=== PATIENT | female | born 1945 | race Caucasian/White ===

== ENCOUNTER 2023-08-21 21:50 | Inpatient (IN) | payer MEDICARE, SELFPAY ==
--- NOTE | ~2023-08-21 | CT_ITS ---
EXAMINATION: CT abdomen pelvis w con DATE: 08/21/2023 23:37 INDICATION: RLQ and suprapubic pain TECHNIQUE: Computed tomography (CT) of the abdomen and pelvis was performed with 100 mL Omnipaque-350 intravenous contrast. Automated exposure control and iterative reconstruction technique were employe d. The dose-length product was 985.65 mGy-cm. COMPARISON: None. FINDINGS: Lower thorax: Coronary artery calcium. Cardiomegaly. Mild dependent atelectasis. Liver: Subcentimeter hypodensities in the left lobe and right lobe, likely small cysts or hemangiomas . Biliary/Gallbladder: Gallbladder is normal. No bile duct dilation. Pancreas: Fatty infiltration. Spleen: Normal. Adrenals:No mass. Kidneys: No suspicious mass, obstructing stone, or hydronephrosis. GI tract: Progressive mild dilation of distal small bowel, transition point in the distal ileum at en trance of a right inguinal hernia. Fecal content. Mesenteric stranding and fluid. No large bowel dila tion. Normal appendix. Diverticulosis without diverticulitis. Mesentery/Peritoneum: No ascites, mass, or free air. Retroperitoneum: No mass. Pelvis: Pelvic organs are within normal limits. Soft Tissues: Fat, small bowel, and fluid containing right inguinal hernia with a 2.5 cm neck. The he rniated bowel loop does not appear to be obstructed Bones: No acute osseous finding. IMPRESSION: Distal small bowel obstruction at the entrance of a right inguinal hernia. Mucosal hyperemia and mesenteric inflammation/fluid of the obstructed bowel proximal to the hernia ma y or present early signs of bowel wall ischemia. No evidence of strangulation of the herniated bowel loops. Reviewed, dictated and finalized at location [facility]. IMPRESSION: Distal small bowel obstruction at the entrance of a right inguinal hernia. Mucosal hyperemia and mesenteric inflammation/fluid of the obstructed bowel pro ximal to the hernia may or present early signs of bowel wall ischemia. No evidence of strangulation of the herniated bowel loops.
--- NOTE | ~2023-08-21 | CT_ITS ---
EXAMINATION: CT abdomen pelvis wo con DATE: 08/22/2023 07:43 INDICATION: Incarcerated right inguinal hernia TECHNIQUE: Computed tomography (CT) of the abdomen and pelvis was performed without intravenous contr ast. Automated exposure control and iterative reconstruction technique were employed. Exam dose: 114 8.43 mGy-cm total exam DLP. COMPARISON: August 21, 2023 CT abdomen pelvis FINDINGS: There is mild discoid atelectasis and/or scarring in the dependent right lower lobe. Cardiomegaly. No pericardial or pleural effusion. The liver, gallbladder, spleen, pancreas and bile ducts and pancreatic duct are unremarkable. Normal morphology of the adrenal glands. No renal mass lesion or urinary tract calculus or hydroureteronephrosis is evident. The urinary bladd er, uterus and adnexal areas are unremarkable. Normal caliber of the abdominal aorta. There is right inguinal hernia containing small bowel segments. Proximal to this is fecal-like conten t of the small bowel and mesenteric edema. Numerous diverticula of the sigmoid and descending colon and occasional transverse colon diverticula; no CT evidence of diverticulitis. Normal appendix. Small fat-containing umbilical hernia. Dextroscoliosis and multilevel degenerative disc disease of the lumbar spine. Diffuse idiopathic skel etal hyperostosis of the thoracic spine. IMPRESSION: Partial obstruction and possible strangulation of small bowel containing right inguinal hernia; urgent surgical consultation is recommended. Diverticulosis of the colon; no CT evidence of diverticulitis No evidence of appendicitis. Reviewed, dictated and finalized at [facility]. Reviewed, dictated and finalized at location A. IMPRESSION: Partial obstruction and possible strangulation of small bowel cont aining right inguinal hernia; urgent surgical consultation is recommended. Diverticulosis of the colon; no CT evidence of diverticulitis No evidence of appendicitis.
[2023-08-21 21:59] VITALS: BP 182/90; PULSE 80; RESP 20; TEMP 36.4; O2SAT 98
--- NOTE | 2023-08-21 22:26 | ED.ABDPAIN ---
HPI - Abdominal Pain General Chief Complaint: Abdominal Pain <FRANCISCA Malik Last Filed: 08/22/23 02:47> Stated Complaint: abd pain <FRANCISCA Malik Last Filed: 08/22/23 02:47> Time Seen by Provider: 08/21/23 22:18 <FRANCISCA Malik Last Filed: 08/22/23 02:47> History of Present Illness HPI narrative: 77-year-old female with reported history of thyroid disease presents to emergency department for abdominal pain that started today. Patient states the pain started in her epigastrium and she thought it was gas pains. States it is since traveled into her right lower quadrant. She describes the pain as sharp. She denies fever, nausea vomiting, diarrhea, dysuria or hematuria, flank pain, melena or hematochezia. Denies history of prior abdominal surgeries. Last BM was today and small in caliber. Denies obstipation. <FRANCISCA Malik Last Filed: 08/22/23 02:47> Related Data Home Medications: Home Medications Medication Instructions Recorded Confirmed levothyroxine 112 mcg tablet 112 mcg PO DAILY 08/22/23 08/22/23 <FRANCISCA Malik Last Filed: 08/22/23 02:47> Allergies/Adverse Reactions: Allergies Allergy/AdvReac Type Severity Reaction Status Date / Time No Known Allergies Allergy Verified 08/21/23 21:51 <FRANCISCA Malik Last Filed: 08/22/23 02:47> Review of Systems Review of Systems: CONSTITUTIONAL: Denies fever, chills, or sweats. EYES: Denies visual changes, redness, or discharge. ENT: Denies rhinorrhea, congestion, sore throat, or otalgia. CARDIOVASCULAR: Denies chest pain, palpitations, or edema. RESPIRATORY: Denies cough or dyspnea. GASTROINTESTINAL: See HPI GENITOURINARY: Denies dysuria or hematuria. SKIN: Denies rash or itching. MUSCULOSKELETAL: Denies back pain, joint pain, or myalgia. NEUROLOGIC: Denies headache, numbness, or weakness. PSYCHIATRIC: Denies anxiety or depression. <Sabina Holman PA-C - Last Filed: 08/22/23 02:47> [facility] Social History Social History: Social History Smoking status: Former smoker Tobacco type: cigarettes Alcohol intake: never Substance use: never Substance use type: does not use Do You Feel Safe in your Home?: Yes Lack of Transportation: No Lack of Food: Never True Current Housing: I Have Housing Concerned About Future Housing: No Difficulty Paying Gas/Electric Bills: No Difficulty Paying for Meds: No Currently Unemployed: No Education: High School Diploma/GED Difficulty w/ Childcare or Family Care: No Spiritual care concerns: Yes (Jahovah Witness) <Sabina Holman PA-C - Last Filed: 08/22/23 02:47> Exam Narrative: GENERAL: Well-appearing, well-nourished, and in no acute distress. HEAD: Normocephalic, atraumatic. EYES: PERRLA and EOMI. ENT: Nares clear, no rhinorrhea or epistaxis. Mucous membranes moist. NECK: Supple. CHEST: Clear to auscultation. No respiratory distress. HEART: Regular rate and rhythm. No murmur heard. Normal peripheral pulses. ABDOMEN: Quiet bowel sounds. Abdomen soft with tenderness and guarding in the right lower quadrant and suprapubic region. Palpable firm rate inguinal mass that is not easily reduced. It is tender to palpation. No overlying skin changes. No rigidity or rebound. No CVA tenderness. EXTREMITIES: Normal range of motion. No edema. SKIN: Warm, dry, no rash. NEURO: No focal deficits. Alert and oriented x3 <Sabina Holman PA-C - Last Filed: 08/22/23 02:47> Course [employer]IMAL BEHAVIOURIST/PA Physician Supervision For this patient encounter, I reviewed the ANIMAL BEHAVIOURIST or PA documentation, treatment plan, and medical decision making and had [id number] time with this patient. I performed all aspects of the MDM as documented. <Idalia Alejandra MD - Last Filed: 08/22/23 06:38> Vital Signs Vital signs: Vital Signs Temperature 97.5 F L
[2023-08-21 22:27] LABS: Basophils Percent Auto 0.3 % (0.2-1.2); Eosinophils Absolute Auto 0.1 K/mm3 (0-0.3); Hematocrit 38.2 % (37.0-47.0); Hemoglobin 12.6 g/dL (12.0-15.0); Immature Granulocyte Absolute 0.02 K/mm3 (0.00-0.031); Immature Granulocyte Percent A 0.3 % (0-0.5); Lymphocytes Absolute Auto 2.02 K/mm3 (0.9-3.2); Lymphocytes Percent Auto 28.4 % (18.3-44.2); Mean Corpuscular Hemoglobin 30.7 pg (26-34); Mean Corpuscular Volume 92.9 fl (80-100); Mean Platelet Volume 10.1 fl (7.4-10.4); Monocytes Absolute Auto 0.5 K/mm3 (0.1-0.6); Monocytes Percent Auto 7.5 % (2.6-8.5); Neutrophils Absolute Auto 4.4 K/mm3 (1.3-6.7); Neutrophils Percent Auto 61.5 % (45.5-73.1); Platelet Count Result 254 k/mm3 (150-375); Red Blood Count 4.11 M/mm3 (4.2-5.4); Red Cell Distribution Width 13.4 % (11.5-14.5); White Blood Count 7.1 K/mm3 (4.5-10.0)
[2023-08-21 22:33] LABS: Appearance Urine Cloudy (Clear); Bacteria Urine 2+ /hpf; Bilirubin Urine Negative (Negative); Blood Urine Negative (Negative); Color Urine Yellow (Yellow); Glucose Urine UA Negative (Negative); Ketones Urine Negative (Negative); Leukocyte Esterase Ur Negative LEU/UL (Negative); Nitrate Urine Negative (Negative); Non Pathogenic Casts 0-2; Protein Urine Negative (Negative); RBC Urine 0-2 /hpf (0-2); Specific Grav Ur 1.029 (1.001-1.035); Squamous Epithelial Cell Urine Many /hpf (Few); WBC Urine 0-5 /hpf (0-3)
[2023-08-21 22:39] LABS: Alanine Aminotransferase 24 U/L (6-35); Albumin Level 3.9 g/dL (3.5-5.1); Alkaline Phosphatase 103 U/L (38-126); Anion Gap 2 mmol/L (4-12); Aspartate Amino Transferase 25 U/L (14-36); Bilirubin,Total 0.4 mg/dL (0.2-1.3); Blood Urea Nitrogen 19 mg/dL (7-17); Calcium 9.3 mg/dL (8.4-10.2); Carbon Dioxide 28 mmol/L (22-30); Chloride 104 mmol/L (98-107); Estimated CRCL calculation 58 ml/min; Estimated Glomerular Filt Rate > 60; Glucose 126 mg/dL (65-110); Lipase 109 U/L (23-300); Sodium 134 mmol/L (137-145)
[2023-08-21] MEDS: MORPHINE SULFATE (*CRX) 4 MG/ML INJ 2 MG IV PUSH (22:39)
[2023-08-21 22:56] LABS: Add Urine Microscopic? YES
[2023-08-21 23:00] VITALS: BP 153/72; PULSE 72; RESP 20; O2SAT 94
[2023-08-21 23:12] LABS: Lactic Acid Reflex 0.7 mmol/L (0.7-2.0)
[2023-08-22] VITALS (24 sets, daily range): BP systolic 113–148; BP diastolic 52–78; PULSE 68–97; RESP 14–20; TEMP 35.7–36.8; O2SAT 86–100; BMI 35.2
[2023-08-22] MEDS: SODIUM CHLORIDE 0.9% IV 1,000 ML 999 ML IV CONT (00:49)
[2023-08-22] MEDS: HYDROmorphone HCL INJ (*CRX) 1 MG/ML SYR IV PUSH (00:49)
[2023-08-22] MEDS: PIPERACILLN/TAZ 3.375GM/NS50ML 3.375 GM/50 ML BAG IVPB ×2 (01:56→08:20)
[2023-08-22] MEDS: SODIUM CHLORIDE 0.9% IV 1,000 ML 100 ML IV CONT (01:56)
[2023-08-22] MEDS: ONDANSETRON INJ 4 MG/2 ML VIAL IV PUSH (03:32)
--- NOTE | 2023-08-22 07:32 | PM.IMHP ---
H&P: HPI History of Present Illness Date/Time: 08/22/23 07:32 Chief Complaint: Small-bowel obstruction secondary to incarcerated right inguinal hernia Narrative: Patient is a PMFSH Social History Social History Smoking status: Former smoker Tobacco type: cigarettes Alcohol intake: never Substance use: never Substance use type: does not use Do You Feel Safe in your Home?: Yes Lack of Transportation: No Lack of Food: Never True Current Housing: I Have Housing Concerned About Future Housing: No Difficulty Paying Gas/Electric Bills: No Difficulty Paying for Meds: No Currently Unemployed: No Education: High School Diploma/GED Difficulty w/ Childcare or Family Care: No Spiritual care concerns: Yes (Jahovah Witness) Meds Home Medications and Allergies Home Medications Medication Instructions Recorded Confirmed Type levothyroxine 112 mcg tablet 112 mcg PO DAILY 08/22/23 08/22/23 History Allergies Allergy/AdvReac Type Severity Reaction Status Date / Time No Known Allergies Allergy Verified 08/21/23 21:51 Vital Signs Vital Signs - 24 hr 08/21/23 21:59 08/21/23 23:00 08/22/23 02:57 Temperature 36.4 C L Pulse Rate 80 72 68 Respiratory Rate 20 20 16 Blood Pressure 182/90 H 153/72 H Pulse Oximetry 98 94 98 Oxygen Delivery Room Air Oxygen Flow Rate 08/22/23 00:55 08/22/23 01:00 08/22/23 01:20 Temperature Pulse Rate Respiratory Rate Blood Pressure Pulse Oximetry 86 L 97 99 Oxygen Delivery Oxygen Flow Rate 08/22/23 01:30 08/22/23 01:31 08/22/23 01:45 Temperature Pulse Rate Respiratory Rate Blood Pressure 134/64 Pulse Oximetry 99 99 100 Oxygen Delivery Oxygen Flow Rate 08/22/23 01:46 08/22/23 02:01 08/22/23 02:02 Temperature Pulse Rate Respiratory Rate Blood Pressure 138/72 133/69 Pulse Oximetry 99 96 97 Oxygen Delivery Oxygen Flow Rate 08/22/23 02:29 08/22/23 04:00 08/22/23 06:00 Temperature 36.5 C Pulse Rate 76 Respiratory Rate 20 Blood Pressure 126/78 Pulse Oximetry 98 98 97 Oxygen Delivery Nasal Cannula Oxygen Flow Rate 3 H&P: Results Labs Labs: Short CBC 04/05/24 Range/Units 22:19 WBC 7.1 (4.5-10.0) K/mm3 Hgb 12.6 (12.0-15.0) g/dL Hct 38.2 (37.0-47.0) % Plt Count 254 (150-375) k/mm3 BMP 08/21/23 22:19 Sodium 134 L Potassium 4.0 Chloride 104 Carbon Dioxide 28 BUN 19 H Creatinine 0.70 Glucose 126 H Calcium 9.3 Liver Function 08/21/23 Range/Units 22:19 Total Bilirubin 0.4 (0.2-1.3) mg/dL AST 25 (14-36) U/L ALT 24 (6-35) U/L Alkaline Phosphatase 103 (38-126) U/L Albumin 3.9 (3.5-5.1) g/dL Urine 08/21/23 Range/Units 22:19 Urine Color Yellow (Yellow) Urine Appearance Cloudy H (Clear) Urine pH 5.0 (5.0-9.0) Ur Specific [place] 1.029 (1.001-1.035) Urine Protein Negative (Negative) mg/dL Urine Glucose (UA) Negative (Negative) mg/dL
--- NOTE | 2023-08-22 07:34 | WPDCN ---
Assessment and Plan Assessment and plan (1) Small bowel obstruction: Code(s): K56.609 - Unspecified intestinal obstruction, unspecified as to partial versus complete obstruction Status: Acute Assessment and Plan: Patient's side symptoms of a partial small-bowel obstruction yesterday. The point obstruction appeared to be an incarcerated right inguinal hernia. CT scan revealed no obvious evidence of bowel ischemia or bowel necrosis. She was started IV antibiotics and admitted to the hospital for further evaluation. Hydrated IV fluids and kept NPO. (2) Hernia, inguinal, right: Code(s): K40.90 - Unilateral inguinal hernia, without obstruction or gangrene, not specified as recurrent Status: Acute Assessment and Plan: Patient has evidence of a incarcerated right inguinal hernia on CT scan last evening. This morning the patient has no right groin pain which resolved after she was admitted to the hospital. She has no nausea today. On examination she has no evidence of right inguinal hernia to palpation no skin changes. I am going to repeat a CT scan abdomen pelvis this morning without contrast stat. If there is no evidence of an acute incarcerated right inguinal with bowel obstruction then there will be no need for any emergent surgery this morning. If the hernia has reduced which is my clinical suspicion that we can go ahead advance her diet. At that point if she is doing well then she can either be discharged home with plan for an interval right inguinal hernia repair as an outpatient or she can remain in the hospital through the weekend and have the repaired before she goes home. HPI Data of Consult Date/Time: 08/22/23 07:34 Requesting Physician: Wu Allred MD Primary Care Provider: Luly Ricky Consult Narrative Reason for consult: Small-bowel obstruction secondary to incarcerated right inguinal hernia Narrative: Marcela Ochoa is a 77 year old female who presented to the emergency room this evening complaining of epigastric abdominal pain which localized to the right groin region earlier today. Had episodes of nausea but no emesis. She stated she had a lump in the right groin region which was very painful. Normal white blood cell count port. Normal lactic acid level. No tachycardia. No hypotension. Patient denies any prior history of abdominal or groin surgery. States she did not know she had an inguinal hernia. CT scan abdomen pelvis showed an incarcerated right inguinal hernia with small bowel loop in the right groin hernia sac. There was evidence of at least a partial small-bowel obstruction due to the right inguinal hernia. Free air was seen. No pneumatosis the bowel wall was seen. This morning the patient she has no groin pain. Palpation of the right groin reveals no evidence of a incarcerated right inguinal hernia on exam. No fever no tachycardia. Review of Systems Review of Systems: The remainder of the review of systems to include constitutional, HEENT, cardiovascular, respiratory, GI, , integumentary, musculoskeletal, endocrine, immunologic, hematologic, psychiatric, and neurologic are all negative except for which is mentioned above in the HPI. [facility] Social History Social History Smoking status: Former smoker Tobacco type: cigarettes Alcohol intake: never Substance use: never Substance use type: does not use Do You Feel Safe in your Home?: Yes Lack of Transportation: No Lack of Food: Never True Current Housing: I Have Housing Concerned About Future Housing: No Difficulty Paying Gas/Electric Bills: No Difficulty Paying for Meds: No Currently Unemployed: No Education: High School Diploma/GED Difficulty w/ Childcare or Family Care: No Spiritual care concerns: Yes (Jahovah Witness) Meds Home Medications and Allergies Home Medications Medication Instructions [place]
--- NOTE | 2023-08-22 08:40 | WPDANESEPPF ---
Anes - Initial Pre Proc Eval Procedure: Operation Date: 08/22/23 09:00 Proposed Procedures p Exploratory Laparotomy, Pos Bowel Resec - Orlin Mendez MD Date/Time: 08/22/23 08:40 Surgeon: Andrea Pre Op Diagnosis: sbo Patient Data Age: 77 Gender: F Height: 1.57 m Weight: 87.4 kg Last Vital Signs Temp 36.5 C 08/22/23 06:00 Pulse 76 08/22/23 06:00 Resp 20 08/22/23 06:00 BP 126/78 08/22/23 06:00 Pulse Ox 97 08/22/23 06:00 O2 Del Method Nasal Cannula 08/22/23 04:00 O2 Flow Rate 3 08/22/23 04:00 Allergies Allergy/AdvReac Type Severity Reaction Status Date / Time No Known Allergies Allergy Verified 08/21/23 21:51 Home Medications Medication Instructions Recorded Confirmed Type levothyroxine 112 mcg tablet 112 mcg PO DAILY 08/22/23 08/22/23 History Laboratory Tests 08/21/23 08/21/23 22:19 22:57 WBC 7.1 K/mm3 (4.5-10.0) RBC 4.11 L M/mm3 (4.2-5.4) Hgb 12.6 g/dL (12.0-15.0) Hct 38.2 % (37.0-47.0) MCV 92.9 fl (80-100) MCH 30.7 pg (26-34) MCHC 33.0 g/dl (32-36) RDW 13.4 % (11.5-14.5) Plt Count 254 k/mm3 (150-375) MPV 10.1 fl (7.4-10.4) Immature Gran % (Auto) 0.3 % (0-0.5) Neut % (Auto) 61.5 % (45.5-73.1) Lymph % (Auto) 28.4 % (18.3-44.2) [place] % (Auto) 7.5 % (2.6-8.5) Eos % (Auto) 2.0 % (0-4.4) Baso % (Auto) 0.3 % (0.2-1.2) Lymph # (Auto) 2.02 K/mm3 (0.9-3.2) [place] # (Auto) 0.5 K/mm3 (0.1-0.6) Eos # (Auto) 0.1 K/mm3 (0-0.3) Baso # (Auto) 0.0 K/mm3 (0.0-0.1) Abs Immat Gran (auto) 0.02 K/mm3 (0.00-0.031) Absolute Neuts (auto) 4.4 K/mm3 (1.3-6.7) Absolute Nucleated RBC 0.000 K/mm3 (0.0-0.012) Nucleated RBC % 0.0 % (0.0-0.2) Sodium 134 L mmol/L (137-145) Potassium 4.0 mmol/L (3.4-5.0) Chloride 104 mmol/L (98-107) Carbon Dioxide 28 mmol/L (22-30) Anion Gap 2 L mmol/L (4-12) BUN 19 H mg/dL (7-17) Creatinine 0.70 mg/dL (0.7-1.0) Estim Creat Clear Calc 58 ml/min Estimated GFR > 60 (59 - ) Glucose 126 H mg/dL (65-110) Lactic Acid 0.7 mmol/L (0.7-2.0) Calcium 9.3 mg/dL (8.4-10.2) Total Bilirubin 0.4 mg/dL (0.2-1.3) AST 25 U/L (14-36) ALT 24 U/L (6-35) Alkaline Phosphatase 103 U/L (38-126) Total Protein 8.0 g/dL (6.3-8.2) Albumin 3.9 g/dL (3.5-5.1) Lipase 109 U/L (23-300) Urine Color Yellow (Yellow) Urine Appearance Cloudy H (Clear) Urine pH 5.0 (5.0-9.0) Ur Specific [place] 1.029 (1.001-1.035) Urine Protein Negative mg/dL (Negative) Urine Glucose (UA) Negative mg/dL (Negative) Urine Ketones Negative mg/dL (Negative) Ur Blood (Man) Negative (Negative) Urine Nitrate Negative (Negative) Urine Bilirubin Negative (Negative) Urine Urobilinogen 1.0 mg/dL (<2.0) Leukocyte Esterase Rfl Negative BRENDA/UL (Negative) Urine RBC 0-2 /hpf (0-2) Urine WBC 0-5 /hpf (0-3) Ur Squamous Epith Cells Many H /hpf (Few) Urine Bacteria 2+ H /hpf Urine Casts 0-2 Patient hx anesthesia problems: none Family hx anesthesia problems: none Results Review: All pre-operative results and documents have been reviewed as part of the pre-operative evaluation. [facility] Past Medical History Medical History (Updated 08/22/23 @ 08:40 by Maxi Vogel DO) Hypothyroidism Pre-diabetes Social History Social History Smoking status: Former smoker Tobacco type: cigarettes Alcohol intake: never Substance use: never Substance use type: does not use Do You Feel Safe in your Home?: Yes Lack of Transportation: No [place]
--- NOTE | 2023-08-22 08:41 | WPDHPUPDATE1 ---
History and Physical Update Update Date/Time: 08/22/23 08:41 History and Physical has been reviewed, including an updated exam of the patient. There are NO changes in the patient's condition. Risks, benefits, and alternatives have been discussed and questions answered. Patient agrees to proceed with procedure.
[2023-08-22] MEDS: LACTATED RINGERS 1,000 ML 30 ML IV CONT (09:30)
[2023-08-22 09:44] LABS: Basophils Percent Auto 0.3 % (0.2-1.2); Eosinophils Percent Auto 0.2 % (0-4.4); Hematocrit 36.9 % (37.0-47.0); Hemoglobin 11.7 g/dL (12.0-15.0); Immature Granulocyte Absolute 0.02 K/mm3 (0.00-0.031); Immature Granulocyte Percent A 0.3 % (0-0.5); Lymphocytes Absolute Auto 0.69 K/mm3 (0.9-3.2); Lymphocytes Percent Auto 10.4 % (18.3-44.2); Mean Corpuscular HGB Conc 31.7 g/dl (32-36); Mean Corpuscular Hemoglobin 30.5 pg (26-34); Mean Corpuscular Volume 96.3 fl (80-100); Mean Platelet Volume 10.4 fl (7.4-10.4); Monocytes Absolute Auto 0.3 K/mm3 (0.1-0.6); Monocytes Percent Auto 4.7 % (2.6-8.5); Neutrophils Absolute Auto 5.6 K/mm3 (1.3-6.7); Neutrophils Percent Auto 84.1 % (45.5-73.1); Platelet Count Result 219 k/mm3 (150-375); Red Blood Count 3.83 M/mm3 (4.2-5.4); Red Cell Distribution Width 13.3 % (11.5-14.5); White Blood Count 6.6 K/mm3 (4.5-10.0)
[2023-08-22 10:00] LABS: Alanine Aminotransferase 23 U/L (6-35); Albumin Level 3.6 g/dL (3.5-5.1); Alkaline Phosphatase 83 U/L (38-126); Anion Gap 5 mmol/L (4-12); Aspartate Amino Transferase 26 U/L (14-36); Bilirubin,Total 0.5 mg/dL (0.2-1.3); Blood Urea Nitrogen 15 mg/dL (7-17); Calcium 8.2 mg/dL (8.4-10.2); Carbon Dioxide 26 mmol/L (22-30); Chloride 106 mmol/L (98-107); Estimated CRCL calculation 79 ml/min; Estimated Glomerular Filt Rate > 60; Glucose 140 mg/dL (65-110); Potassium 4.4 mmol/L (3.4-5.0); Sodium 137 mmol/L (137-145)
[2023-08-22] MEDS: LIDO 1%/EPINEPHRINE 1:100,000 50 ML VIAL 30 ML INFILTRATE (10:05)
[2023-08-22] MEDS: BUPivacaine HCL 0.5% PF 30 ML VIAL INFILTRATE (10:05)
[2023-08-22] MEDS: KETOROLAC 15 MG/ML VIAL (*BKC) IV PUSH (10:33)
--- NOTE | 2023-08-22 11:01 | W.PM.PROC2 ---
Procedure Note - Detailed Date of Procedure 08/22/23 Pre-op Diagnosis SBO. Incarcerated right inguinal hernia Post-op Diagnosis Same Procedure Performed Open incarcerated right inguinal hernia repair with Ultrapro hernia system mesh Surgeon Orlin Mendez MD Anesthesia General Indications Patient is a 77-year-old female who presented last evening with abdominal pain which then radiated down to the right groin region. She had episodes of nausea and vomiting. Workup in emergency room showed a normal white blood cell count and had no evidence of lactic acidosis. CT scan abdomen pelvis showed a loop of small bowel incarcerated within the right inguinal hernia without evidence of bowel ischemia. She presents now for an open incarcerated right inguinal hernia repair with possible mesh placement. Findings The patient indirect inguinal hernia. The small bowel was all viable and was reduced with the hernia sac back into the abdomen. An oval extended piece of Ultrapro hernia system mesh was used for the repair. Description of Procedure After informed consent was obtained patient brought to the operating room she was placed supine position and general endotracheal anesthesia was administered. The abdomen and bilateral groin regions were then prepped and draped usual sterile fashion. A time-out was then performed correctly identifying the patient as well as procedure to be performed verifying site marking. She was already on scheduled IV antibiotics. I then proceeded to make a transverse incision in the right groin region just above the palpated right pubic tubercle. Dissection carried down through the subcu tissues and Alesia's fascia electrocautery. External oblique aponeurosis was encountered and then the subcutaneous tissues was dissected off the external oblique aponeurosis. The external ring was identified and then incised the external oblique aponeurosis along the direction of its fibers the 15 blade scalpel. I then opened the external oblique aponeurosis out through the external ring utilized electrocautery. The external oblique aponeurosis was from the underlying internal oblique muscle fibers were utilized electrocautery. I then encircled the round ligament at the pubic tubercle with blunt finger dissection placed a [place] drain around the round ligament. I further divided some muscle fibers around the round ligament to further mobilize it. I then explored and looked at the floor of the inguinal canal and there is no evidence of a direct defect. I then explored the round ligament and identified fatty tissue as well as a small indirect inguinal hernia sac. There was no bowel in the hernia sac at this time. I then dissected the fatty tissue and the hernia sac from the muscle fibers the round ligament and reduced these back into the dilated internal ring. The round ligament was then resected by placing clamps proximally and distally and then dividing the segment in between. The around the was then ligated with 3-0 Vicryl sutures. The proximal portion of the round ligament was then reduced back into the preperitoneal space through the dilated internal ring. The retractors into the internal ring I then dissected out the preperitoneal space with blunt finger and sponge dissection until I felt I had the whole myopectineal orifice dissected. I then chose a local extended piece of ultra Pro hernia system mesh for the repair. The underlay portion of mesh placed to the dilated internal ring into the preperitoneal space deep to the inferior epigastric vessels. It cover the whole myopectineal orifice. The cylindrical connecting portion the ring came out through the internal ring and then the overlay portion of mesh was laid out over the floor of the inguinal canal. I then secured the overlay patch to the tissues around the pubic tubercle utilizing interrupted 2-0 Vicryl sutures. Medially the overlay patch was secured to the internal oblique muscle fib
--- NOTE | 2023-08-22 13:46 | PM.IMHP ---
H&P: HPI History of Present Illness Date/Time: 08/22/23 13:46 Chief Complaint: Abdominal pain Narrative: This is a 77-year-old female with a past medical history of hypothyroidism and diabetes on metformin who presented to the ER last night with complaints of severe abdominal pain to her right lower quadrant. The history was obtained from the patient and is supplemented by her brother who she lives with. She reports she just flew in last night from [place] after vacationing with her daughter. She was having abdominal pain throughout the day which suddenly worsened at night causing her to ask her brother to bring her to the ER. She reports 1 episode of vomiting in the ER. CT of her abdomen and pelvis shows partial obstruction and possible strangulation of small bowel containing right inguinal hernia. Surgery was consulted and she was taken to the OR this morning for open incarcerated right hernia repair with mesh placement. She is seen after surgery in her room and appears well. She states her abdominal pain has resolved and she is tolerating ice chips without nausea or vomiting. Review of Systems Review of Systems: All systems reviewed & are unremarkable except as noted in HPI and below PMFSH Past Medical History Medical History Hypothyroidism Pre-diabetes Surgical History Surgical History History of tonsillectomy S/P inguinal hernia repair using synthetic patch Social History Social History Smoking status: Former smoker Tobacco type: cigarettes Alcohol intake: never Substance use: never Substance use type: does not use Do You Feel Safe in your Home?: Yes Lack of Transportation: No Lack of Food: Never True Current Housing: I Have Housing Concerned About Future Housing: No Difficulty Paying Gas/Electric Bills: No Difficulty Paying for Meds: No Currently Unemployed: No Education: High School Diploma/GED Difficulty w/ Childcare or Family Care: No Spiritual care concerns: Yes ([employer]ah[employer]ah Witness) Meds Home Medications and Allergies Home Medications Medication Instructions Recorded Confirmed Type levothyroxine 112 mcg tablet 112 mcg PO DAILY 08/22/23 08/22/23 History Allergies Allergy/AdvReac Type Severity Reaction Status Date / Time No Known Allergies Allergy Verified 08/21/23 21:51 Vital Signs Vital Signs - 24 hr 08/21/23 21:59 08/21/23 23:00 08/22/23 02:57 Temperature 97.5 F L Pulse Rate 80 72 68 Respiratory Rate 20 20 16 Blood Pressure 182/90 H 153/72 H Pulse Oximetry 98 94 98 Oxygen Delivery Room Air Oxygen Flow Rate 08/22/23 00:55 08/22/23 01:00 08/22/23 01:20 Temperature Pulse Rate Respiratory Rate Blood Pressure Pulse Oximetry 86 L 97 99 Oxygen Delivery Oxygen Flow Rate 08/22/23 01:30 08/22/23 01:31 08/22/23 01:45 Temperature Pulse Rate Respiratory Rate Blood Pressure 134/64 Pulse Oximetry 99 99 100 Oxygen Delivery Oxygen Flow Rate 08/22/23 01:46 08/22/23 02:01 08/22/23 02:02 Temperature Pulse Rate Respiratory Rate Blood Pressure 138/72 133/69 Pulse Oximetry 99 96 97 Oxygen Delivery Oxygen Flow Rate 08/22/23 02:29 08/22/23 04:00 08/22/23 06:00 Temperature 97.7 F Pulse Rate 76 Respiratory Rate 20 Blood Pressure 126/78 Pulse Oximetry 98 98 97 Oxygen Delivery Nasal Cannula Oxygen Flow Rate 3 08/22/23 08:20 08/22/23 10:02 08/22/23 11:03 Temperature 97.1 F L Pulse Rate 97 Respiratory Rate 19 Blood Pressure 121/52 L Pulse Oximetry 97 97 98 Oxygen Delivery Nasal Cannula Nasal Cannula Simple Face Mask Oxygen Flow Rate 3 3 10 08/22/23 11:15 08/22/23 11:30 08/22/23 11:53 Temperature 96.2 F L Pulse Rate 94 93 79 Respiratory Rate 20 19 16 Blood Pressure 113/59 L 136/65
[2023-08-23] VITALS: BP 120/51; PULSE 101; RESP 20; TEMP 36.9; O2SAT 93
[2023-08-23 04:00] VITALS: BP 135/57; PULSE 98; RESP 18; TEMP 36.9; O2SAT 93
[2023-08-23] MEDS: LEVOTHYROXINE SODIUM 112 MCG TABLET PO (05:20)
[2023-08-23 07:42] VITALS: BP 120/52; PULSE 90; RESP 24; TEMP 36.7; O2SAT 91
--- NOTE | 2023-08-23 08:31 | WPDANESPN ---
Anes - Prog Note Post-Op Date/Time: 08/23/23 08:31 Cardiovascular status: normal Respiratory status: normal Airway patency: baseline Mental status: baseline Post-Op hydration status: normal Vital Signs: Last Vital Signs Temp 36.7 C 08/23/23 07:42 Pulse 90 08/23/23 07:42 Resp 24 H 08/23/23 07:42 BP 120/52 L 08/23/23 07:42 Pulse Ox 91 08/23/23 07:42 O2 Del Method Room Air 08/22/23 20:00 O2 Flow Rate 10 08/22/23 11:03 Pain Score (VAS): 07/25 I/O: Intake & Output 08/22/23 08/23/23 08/23/23 23:59 07:59 15:59 Intake Total 590 100 Balance 590 100 Laboratory Tests 08/22/23 09:06 08/22/23 09:06 08/22/23 09:06 WBC 6.6 RBC 3.83 L Hgb 11.7 L Hct 36.9 L MCV 96.3 MCH 30.5 MCHC 31.7 L RDW 13.3 Plt Count 219 MPV 10.4 Immature Gran % (Auto) 0.3 Neut % (Auto) 84.1 H Lymph % (Auto) 10.4 L [place] % (Auto) 4.7 Eos % (Auto) 0.2 Baso % (Auto) 0.3 Lymph # (Auto) 0.69 L [place] # (Auto) 0.3 Eos # (Auto) 0.0 Baso # (Auto) 0.0 Abs Immat Gran (auto) 0.02 Absolute Neuts (auto) 5.6 Absolute Nucleated RBC 0.000 Nucleated RBC % 0.0 Sodium 137 Potassium 4.4 Chloride 106 Carbon Dioxide 26 Anion Gap 5 BUN 15 Creatinine 0.50 L Estim Creat Clear Calc 79 Estimated GFR > 60 Glucose 140 H Calcium 8.2 L Total Bilirubin 0.5 AST 26 ALT 23 Alkaline Phosphatase 83 Total Protein 7.0 Albumin 3.6 Post-procedural complaints: none Patient Feedback: Patient satisfied with anesthetic care.
--- NOTE | 2023-08-23 09:08 | WPDPN ---
Progress Note: A&P Assessment and Plan (1) S/P inguinal hernia repair using synthetic patch: Code(s): Z98.890 - Other specified postprocedural states; Z87.19 - Personal history of other diseases of the digestive system Status: Acute Assessment and Plan: Postop day 1 after open repair of incarcerated right inguinal hernia with mesh. Is doing very well. At that she be discharged home today. See discharge instructions and orders. (2) Small bowel obstruction: Code(s): K56.609 - Unspecified intestinal obstruction, unspecified as to partial versus complete obstruction Status: Acute Assessment and Plan: Resolved after repair of the incarcerated right inguinal hernia. Subjective Date/time seen: 08/23/23 09:08 Interval history: Patient was sleeping this morning when I came into her room. She is doing very well. Mild pain in the right groin incision which is expected. Tolerated liquids yesterday. Normal white blood cell count. No fever, no tachycardia, postop day 1 after open repair of incarcerated right inguinal hernia causing a partial small-bowel obstruction. Exam GI: Other: Right groin incision mildly ecchymotic but no hematoma. Incision without redness. Expected mild tenderness to palpation. Objective Data Vital Signs Vital Signs: Vital Signs - 24 hr 08/22/23 10:02 08/22/23 11:03 08/22/23 11:15 Temperature 36.2 C L Pulse Rate 97 94 Respiratory Rate 19 20 Blood Pressure 121/52 L 113/59 L Pulse Oximetry 97 98 94 Oxygen Delivery Nasal Cannula Simple Face Mask Room Air Oxygen Flow Rate 3 10 08/22/23 11:30 08/22/23 11:53 08/22/23 12:09 Temperature 35.7 C L 35.7 C L Pulse Rate 93 79 82 Respiratory Rate 19 16 14 Blood Pressure 136/65 132/58 L 133/57 L Pulse Oximetry 97 95 95 Oxygen Delivery Room Air Oxygen Flow Rate 08/22/23 12:39 08/22/23 13:39 08/22/23 16:00 Temperature 36.2 C L 36.3 C L 36.3 C L Pulse Rate 83 90 95 Respiratory Rate 16 18 16 Blood Pressure 129/62 148/71 H 129/67 Pulse Oximetry 98 95 96 Oxygen Delivery Oxygen Flow Rate 08/22/23 20:00 08/22/23 20:00 08/23/23 00:00 Temperature 36.8 C 36.9 C Pulse Rate 97 101 H Respiratory Rate 18 20 Blood Pressure 136/60 120/51 L Pulse Oximetry 93 93 93 Oxygen Delivery Room Air Oxygen Flow Rate 08/23/23 04:00 08/23/23 07:42 Temperature 36.9 C 36.7 C Pulse Rate 98 90 Respiratory Rate 18 24 H Blood Pressure 135/57 L 120/52 L Pulse Oximetry 93 91 Oxygen Delivery Oxygen Flow Rate Intake/Output Intake/Output: Intake & Output 08/20/23 08/21/23 08/22/23 08/23/23 23:59 23:59 23:59 23:59 Intake Total 2140.0 100 Balance 2140.0 100 Meds/Results Medications: Active Medications Generic Name Dose Route Start Last Admin Trade Name Freq PRN Reason Stop Dose Admin Acetaminophen 1,000 mg 08/22/23 10:59 Acetaminophen 500 Mg Tablet PO Q6H PRN Mild Pain (1-3) or Fever Hydrocodone Bitart/Acetaminophen 1 tab 08/22/23 10:59 Hydrocodone/Acetaminophen (*Crx) 5-325 Mg Tablet PO Q4H PRN Pain Rated 4-6 Hydromorphone HCl 1 mg 08/22/23 01:48 Hydromorphone Hcl Inj (*Crx) 1 Mg/Ml Syr IV PUSH Q4H PRN Pain Rated 7-10 Sodium Chloride 1,000 mls @ 100 mls/hr 08/22/23 01:50 08/23/23 05:24 Normal Saline Iv IV CONT Not Given .Q10H DARLENE Levothyroxine Sodium 112 mcg 08/23/23 06:30 08/23/23 05:20 Levothyroxine Sodium 112 Mcg Tablet PO 112 mcg DAILY@0630 DARLENE Administration Ondansetron HCl 4 mg 08/22/23 01:48 08/22/23 03:32 Ondansetron Inj 4 Mg/2 Ml Vial IV PUSH 4 mg Q4H PRN Administration Nausea Oxycodone HCl 5 mg 08/22/23 10:59 Oxycodone Hcl (*Crx) 5 Mg Tab Ir PO Q4H PRN Pain Rated 7-10 Radiology Results: ITS Impressions Abdomen/Pelvis CT 08/22/23 07:46 IMPRESSION: Partial obstruction and possible strangulation of small bowel containing right inguinal hernia; urge
[2023-08-23] MEDS: HYDROcodone/acetaminophen (*CRX) 5-325 MG TABLET 1 TAB PO (10:11)
--- NOTE | 2023-08-23 14:58 | PM.DS ---
DS: Admitting Diagnosis Discharge Date 4-7 Admitting Diagnosis Abdominal pain DS: Discharge Diagnosis Discharge Diagnosis (1) S/P inguinal hernia repair using synthetic patch: Code(s): Z98.890 - Other specified postprocedural states; Z87.19 - Personal history of other diseases of the digestive system Status: Acute Assessment and Plan: Right inguinal incarcerated hernia status post repair Postop day [address] Mendez Tolerating ice chips. Currently on full liquid diet. Advance as tolerated to regular diet tonight Up ad ashok to chair Incentive spirometry Await return of bowel function Pain control with Tylenol versus Colora versus Oxy (2) Small bowel obstruction: Code(s): K56.609 - Unspecified intestinal obstruction, unspecified as to partial versus complete obstruction Status: Acute Assessment and Plan: See above DS: Summary Hospital Course Reason for hospitalization: Incarcerated hernia Hospital Course: This is a 77-year-old female with a past medical history of hypothyroidism and diabetes on metformin who presented to the ER last night with complaints of severe abdominal pain to her right lower quadrant.? The history was obtained from the patient and is supplemented by her brother who she lives with.? She reports she just flew in last night from [place] after vacationing with her daughter.? She was having abdominal pain throughout the day which suddenly worsened at night causing her to ask her brother to bring her to the ER.? She reports 1 episode of vomiting in the ER.? CT of her abdomen and pelvis shows partial obstruction and possible strangulation of small bowel containing right inguinal hernia.? Surgery was consulted and she was taken to the OR this morning for open incarcerated right hernia repair with mesh placement.? She is seen after surgery in her room and appears well.? She states her abdominal pain has resolved and she is tolerating ice chips without nausea or vomiting. Patient is doing well today. She has seen fully dressed and resting at the edge of the bed. Dr. Mendez already saw her today and states that she is safe to discharge from his perspective. She is tolerating a diet passing flatus. Her abdominal pain is well controlled. She has been instructed to follow up with Dr. Mendez in the next 3-4 weeks. Status at Discharge Cognitive/behavioral status at discharge: A&O x4, pleasant Time Spent with Patient Time attestation: Total time spent providing and/or coordinating discharge services: 53 Exam Narrative: General: well appearing, well developed, well nourished, appears stated age. HEENT: normocephalic, atraumatic. Mucous membranes moist. EOMI, PERRLA, bilateral sclera anicteric, no conjunctival injection. Neck supple without JVD, lymphadenopathy, or bruit. Respiratory: clear to auscultation bilaterally. No rales/rhonic/wheezes. Cardiovascular: Regular rate and rhythm, normal S1-S2 upon auscultation. No murmurs, rubs, or clicks. PMI is nondisplaced, capillary re-fill less than 3 second. Abdomen: Soft, round, no pulsatile masses, and mildly tender. No rebound, no guarding. No CVA tenderness, no hepatosplenomegaly. Bowel sounds absent to all four quadrants. No high pitch or tinkling sounds, resonant to percussion. Extremities: No cyanosis, clubbing, or edema present. Pulses are palpable 2/2. Active ROM to all four extremities. Neuro: Alert and orientated x 4. PERRLA. Cranial nerves 2-12 intact without focal deficit. Skin: Warm, dry, and intact, without rash, erythema, or lesion. Lines: Incisions: RLQ incision open to air and well approximated with Dermabond Psych: pleasant, cooperative, normal speech, normal affect, no hallucinations, no dysarthria Discharge Plan Discharge Attending physician on discharge: Bryant Pérez Consulting providers: Orlin Mendez Discharging Clinician: Jael Childs Anticipated Discharge Date/Time: 08/23/23 14:59 Carl
== END 2023-08-23 11:16 | disposition home or self-care (01) | DRG 352 ==
LOC: ANHED 08-22 01:47 → ANH3MEDSUR 08-22 02:58
PROVIDERS: Emergency Medicine; Surgery; Admitting Provider Internal Medicine; Emergency Provider Physician Assistant; Visit Provider Nurse Practitioner Acute Care
PROC: 0YU50JZ Supplement Right Inguinal Region with Synthetic Substitute, Open Approach (ICD-10-PCS; CPT 49000; principal; 2023-08-22 09:00)
DX: K40.30 Unilateral inguinal hernia, with obstruction, without gangrene, not specified as recurrent (principal); E03.9 Hypothyroidism, unspecified; E11.9 Type 2 diabetes mellitus without complications; Z87.891 Personal history of nicotine dependence
CPT/HCPCS: 36415; 74176; 74177; 80053; 81001; 83605; 83690; 85025; 96365; 96375; 99285; A9270; C1781; G0378; J0330; J1100; J1170; J1596; J1885; J2270; J2371; J2405; J2543; J2704; J3010; J7030; J7120; Q9967